=== PATIENT | female | born 1985 | race African-American/Black ===

== ENCOUNTER 2023-01-13 09:45 | Emergency (ER) | payer SELFPAY ==
--- OUTSIDE RECORDS SUMMARY | 2023-01-13 09:47 | XMS REPORT | Clinical Summary ---
:1985 Author Organization [facility] Address [address] [place] [address] Care Team Providers Name Role Phone Unavailable Primary Care Provider Unavailable Allergies Not on File Medications Not on file Active Problems Not on file Social History Tobacco Use Types Packs/Day Years Used Date Smoking Tobacco: Never Assessed Sex Assigned at Date Recorded Not on file Last Filed Vital Signs Not on file Plan of Treatment Not on file Results Not on fileafter 01/13/2022
--- OUTSIDE RECORDS SUMMARY | 2023-01-13 09:49 | XMS REPORT | Continuity of Care Document ---
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 [id number] 09:08:00 Test Item Value Reference Range Interpretation Comments Monocytes # (test code = Monocytes #) 0.5 <=0[address]8 [facility] HospitalDqcsqopOQYGBZHUPY5807-42-24 09:08:00 Test Item Value Reference Range Interpretation Comments Lymphocytes # (test code = Lymphocytes 1.9 1.0-5.5 #) [facility] HospitalNrlukbySTNPOBWNAG9049-51-48 09:08:00 Test Item Value Reference Range Interpretation Comments Neutrophils # (test code = Neutrophils 5.1 1.5-8.1 #) [facility] HospitalRockcsxPWXIWWUHMS9260-93-14 09:08:00 Test Item Value Reference Range Interpretation Comments Basophils (test code = Basophils) 0.[address] [facility] HospitalEcglpztYAVAPSSWLA5294-24-29 09:08:00 Test Item Value Reference Range Interpretation Comments Eosinophils (test code = Eosinophils) 1.[address] <=[address] [facility] HospitalSbbukxxKLLKWMFNDF2866-95-85 09:08:00 Test Item Value Reference Range Interpretation Comments Monocytes (test code = Monocytes) 6.7 2.0-12.0 [facility] HospitalPizbidkQWYKGYMGBU2908-71-46 09:08:00 Test Item Value Reference Range Interpretation Comments Lymphocytes (test code = Lymphocytes) 24.9 20.0-40.0 [facility] HospitalNodlcosWDTXJKKUDF9141-05-33 09:08:00 Test Item Value Reference Range Interpretation Comments Segs (test code = Segs) 66.5 45.0-75.0 [facility] HospitalBsuthquTAMZXZMDEW1495-22-80 09:08:00 Test Item Value Reference Range Interpretation Comments Eosinophils # (test code = Eosinophils 0.1 <=0.5 #) [facility] HospitalMoophleGLCOMHZJZL4853-71-72 09:08:00 Test Item Value Reference Range Interpretation Comments MPV (test code = MPV) 7.9 7.4-10.4 [facility]kbMOPWDIYIAR3485-43-46 09:08:00 Test Item Value Reference Range Interpretation Comments RDW (test code = RDW) 15.9 11.5-14.5 [facility] HospitalHhgzarrMMDTGIUZAZ6855-63-18 09:08:00 Test Item Value Reference Range Interpretation Comments Platelet (test code = Platelet) 160 133-450 [facility] HospitalIhfgmkxLOJUOKZLLN6899-23-72 09:08:00 Test Item Value Reference Range Interpretation Comments MCH (test code = MCH) 30.6 pg 27.0-31.0 [facility] HospitalHbjulzcXTIMQOYCJX0292-54-66 09:08:00 Test Item Value Reference Range Interpretation Comments MCV (test code = MCV) 88.9 80.0-98.0 [facility] HospitalKkrnjsbUZOSFCMBKY5458-80-92 09:08:00 Test Item Value Reference Range Interpretation Comments Hct (test code = Hct) 33.5 36.0-48.0 [facility] HospitalLnhkslvITPNSKEJCN2856-37-16 09:08:00 Test Item Value Reference Range Interpretation Comments MCHC (test code = MCHC) 34.4 32.0-36.0 [facility] HospitalRcqgeeaGLNBSFKOPB4907-50-04 09:08:00 Test Item Value Reference Range Interpretation Comments RBC (test code = RBC) 3.77 4.20-5.40 [facility] HospitalRpasjjuLAYTTOFJDT5653-08-30 09:08:00 Test Item Value Reference Range Interpretation Comments Hgb (test code = Hgb) 11.5 12.0-16.0 [facility] HospitalPavstpjOSNOYZJWDR2868-21-10 09:08:00 Test Item Value Reference Range Interpretation Comments WBC (test code = WBC) 7.7 3.7-10.4 [facility] CenterBxelntbNONHWBIFBE3123-69-29 09:08:00 Test Item Value Reference Range Interpretation Comments Hep Bs Ag (test code Negative *NA*(01/12/18 = Hep Bs Ag) 4:08 AM) [facility]
[2023-01-13 10:36] LABS: Absolute Lymphocytes (CBC) 2.2 K/uL (0.7-4.9); Hematocrit 38.4 % (36.0-45.0); MCV 88.6 fL (80-100); MPV 8.9 fL (7.6-11.3); Platelets 274 thou/uL (152-406); RBC Red Blood Cell Count 4.33 M/uL (3.86-4.86)
[2023-01-13 10:43] LABS: Protime INR 1.06
--- NOTE | 2023-01-13 10:44 | RAD REPORT ---
EXAM DESCRIPTION: CT - Head Brain Wo Cont - 01/13/2023 10:18 am CLINICAL HISTORY: HEADACHE COMPARISON: No comparisons TECHNIQUE: Noncontrast head CT images were obtained without IV contrast. Multiplanar reformats were generated and reviewed. All CT scans are performed using dose optimization technique as appropriate and may include automated exposure control or mA/KV adjustment according to patient size. FINDINGS: No intracranial hemorrhage, mass, or edema. Midline structures are unremarkable. Normal ventricular caliber for age. Ch-white matter differentiation is preserved, without evidence of acute infarct. No abnormal extra- axial fluid collections. Mastoid air cells and visualized portions of the paranasal sinuses are clear. No acute bony findings. IMPRESSION: No evidence of an acute intracranial process.
[2023-01-13 10:56] LABS: ALT/SGPT 22 U/L (13-56); AST/SGOT 9 U/L (15-37); Albumin 3.9 g/dL (3.4-5.0); Alkaline Phosphatase 46 U/L (45-117); BUN Blood Urea Nitrogen 11 mg/dL (7-18); Bicarbonate 28 mEq/L (21-32); Bilirubin Direct < 0.1 mg/dL (0-0.2); Bilirubin Indirect, Calculated ND mg/dL (0.2-0.8); Bilirubin Total 0.3 mg/dL (0.2-1.0); Glomerular Filtration Rate 102 ml/min (=/>90); Glucose Level 100 mg/dL (74-106); Magnesium 2.2 mg/dL (1.6-2.4); Potassium 3.7 mEq/L (3.5-5.1); Protein, Total 8.1 g/dL (6.4-8.2); Sodium Level 140 mEq/L (136-145); Troponin High Sensitivity 56.8 pg/mL (<58.9)
[2023-01-13] MEDS ORDERED: KETOROLAC 30 MG/ML INJ ONE (11:09)
--- NOTE | 2023-01-13 11:54 | RAD REPORT ---
EXAM DESCRIPTION: Rico Single View01/13/2023 11:07 am CLINICAL HISTORY: CHEST PAIN COMPARISON: No comparisons TECHNIQUE: Portable AP view of the chest. FINDINGS: Superimposition of soft tissues somewhat limits evaluation. The lungs are clear. No pneum othorax or effusion. The cardiomediastinal contours are unremarkable. IMPRESSION: No acute cardiopulmonary process.
[2023-01-13] MEDS ORDERED: DIPHENHYDRAMINE 50 MG/ML VIAL ONE (12:15)
[2023-01-13] MEDS ORDERED: METOCLOPRAMIDE 10 MG/2mL INJ ONE (12:16)
[2023-01-13] MEDS ORDERED: NA CHLORIDE 0.9% 1,000 ML ONE (12:16)
--- NOTE | 2023-01-13 14:47 | EDPHYS ---
Physician Documentation [facility] Name: Janene Ruvalcaba Age: 37 yrs Sex: Female : 1985 Arrival Date: 01/13/2023 Time: 09:45 Bed 6 Private MD: ED Physician Nic Avery HPI: 01/13 10:41 This 37 yrs old Black Female presents to ER via Ambulatory with complaints of Headache, ms3 Dizziness, High Blood Pressure. 10:41 37-year-old female with no past medical history presents for headache, chest pain that ms3 been ongoing intermittently for the last few weeks. Patient states today she became dizzy with a right-sided headache. Patient took her blood pressure while on the inpatient floor and her blood pressure was 199/115. Patient states she has had chest pain for the last week. Patient states her right-sided headache is a 9/10. Patient denies any alleviating or inciting factors. Historical: - Allergies: 09:52 No Known Allergies; ll1 - PMHx: 09:52 None; ll1 - PSHx: 09:52 "tummy tuck"; ll1 - Immunization history:: Adult Immunizations up to date. - Social history:: Smoking status: Patient denies any tobacco usage or history of. ROS: 10:41 Constitutional: Negative for fever, and chills. ENT: Negative for injury, pain, and ms3 discharge, Neck: Negative for injury, pain, and swelling, Cardiovascular: Negative for chest pain, and palpitations. Respiratory: Negative for shortness of breath, cough, wheezing, and pleuritic chest pain, Abdomen/GI: Negative for abdominal pain, nausea, vomiting, diarrhea, and constipation, MS/Extremity: Negative for injury and deformity, Skin: Negative for injury, rash, and discoloration, 10:41 Neuro: Positive for headache, 10:41 All other systems are negative, Exam: 10:41 Constitutional: This is a well developed, well nourished patient who is awake, alert, ms3 and in no acute distress. Head/Face: Normocephalic, atraumatic. Neck: Trachea midline, no cervical lymphadenopathy. Supple, full range of motion without nuchal rigidity, or vertebral point tenderness. No Meningismus. Chest/axilla: Normal chest wall appearance and motion. Nontender with no deformity. Cardiovascular: Regular rate and rhythm with a normal S1 and S2. No gallops, murmurs, or rubs. Normal PMI, no JVD. No pulse deficits. Respiratory: Lungs have equal breath sounds bilaterally, clear to auscultation and percussion. No rales, rhonchi or wheezes noted. No increased work of breathing, no retractions or nasal flaring. Abdomen/GI: Soft, non-tender, with normal bowel sounds. No distension or tympany. No guarding or rebound. No evidence of tenderness throughout. Skin: Warm, dry with normal turgor. Normal color with no rashes, no lesions, and no evidence of cellulitis. MS/ Extremity: Pulses equal, no cyanosis. Neurovascular intact. Full, normal range of motion. Neuro: Awake and alert, GCS 15, oriented to person, place, time, and situation. Cranial nerves II-XII grossly intact. Motor strength 5/5 in all extremities. Sensory grossly intact. Cerebellar exam normal. Normal gait. 10:43 ECG was reviewed by the Attending Physician. ms3 Vital Signs: 09:53 BP 190 / 121; Pulse 89; Resp 17; Temp 98; Pulse Ox 100% ; Weight 104.33 kg; Height 5 ll1 ft. 5 in. ; Pain 9/10; 10:33 BP 160 / 100; Pulse 85; Resp 16; Pulse Ox 99% on R/A; iw 10:39 BP 126 / 97; Pulse 74; Resp 18; Pulse Ox 100% on R/A; ld1 11:58 BP 135 / 89; Pulse 71; Resp 18; Pulse Ox 100% on R/A; ld1 14:25 BP 133 / 93; Pulse 68; Resp 18; Pulse Ox 100% on R/A; ld1 09:53 Body Mass Index 38.27 (104.33 kg, 165.1 cm) ll1 09:53 Pain Scale: Adult ll1 MDM: 10:05 Patient medically screened. ms3 10:41 Differential diagnosis: cluster headache, subarachnoid bleed, tension headache, [place] ms3 versus musculoskeletal pain versus hypertension. 11:21 Independent interpretation of the following test(s) in the Emergency Department X-Ray: ms3 My interpretation is CXR image reviewed by me does not show pulmonary edema, PNA, or PTX. 14:47 Data reviewed: vital signs, nurses notes, lab test result(s), EKG, radiologic studies, ms3 and as a result, I will discharge patient. Consideration of Admission/Observation Escalation of care including admission/observation considered. HEART Score 0. I considered the following discharge prescriptions or medication management in the emergency department Medications were administered in the Emergency Department. See MAR. Scoring Tools HEART Score: History: Slightly Suspicious (0) ECG: Normal (0) Age: < or = 45 years (0) Risk Factors: No Risk factors known (0) Troponin: < or = 1 x Normal limit (0) Total Score = 0. Counseling: I had a detailed discussion with the patient and/or guardian regarding the historical points, exam findings, and any diagnostic results supporting the discharge/admit diagnosis, lab results, radiology results, the need for outpatient follow up, to return to the emergency department if symptoms worsen or persist or if there are any questions or concerns that arise at home. Special discussion: I discussed with the patient/guardian in detail that at this point there is no indication for admission to the hospital. It is understood, however, that if the symptoms persist or worsen the patient needs to return immediately for re-evaluation. ED course: Discussed labs, chest x-ray, CT head results with patient and her . Patient to follow-up with primary care physician as discussed. All questions were answered. Return precautions discussed include worsening symptoms, or any other concerns. On reevaluation patient's blood pressure improved, patient symptoms improved, patient alert and orient x4, no apparent distress, nontoxic-appearing, ambulatory in emergency primary, speaking full sentences. 14:47 Response to treatment: the patient's symptoms have markedly improved after treatment, ms3 and as a result, I will discharge patient. 01/13 10:06 Order name: Basic Metabolic Panel; Complete Time: 11:20 ms3 01/13 10:06 Order name: CBC with Diff; Complete Time: 11:20 ms3 01/13 10:06 Order name: LFT's; Complete Time: 11:20 ms3 01/13 10:06 Order name: Magnesium; Complete Time: 11:20 ms3 01/13 10:06 Order name: PT-INR; Complete Time: 11:20 ms3 01/13 10:06 Order name: Troponin HS; Complete Time: 11:20 ms3 01/13 13:02 Order name: Troponin High Sensitivity; Complete Time: 14:27 ms3 01/13 10:06 Order name: XRAY Chest (1 view); Complete Time: 12:02 ms3 01/13 10:06 Order name: CT Head Brain wo Cont; Complete Time: 11:20 ms3 01/13 10:06 Order name: EKG; Complete Time: 10:06 ms3 01/13 10:06 Order name: Cardiac monitoring; Complete Time: 10:32 ms3 01/13 10:06 Order name: EKG - Nurse/Tech; Complete Time: 10:14 ms3 01/13 10:06 Order name: IV Saline Lock; Complete Time: 10:32 ms3 01/13 10:06 Order name: Labs collected and sent; Complete Time: 10:32 ms3 01/13 10:06 Order name: O2 Per Protocol; Complete Time: 10:14 ms3 01/13 10:06 Order name: O2 Sat Monitoring; Complete Time: 10:14 ms3 EC:43 Rate is 76 beats/min. Rhythm is regular. Left axis deviation noted. [place] interval is ms3 normal. QRS interval is normal. Clinical impression: Normal ECG. Interpreted by me. Reviewed by me. Administered Medications: 11:00 Drug: Ketorolac IVP 10 mg 10 mg IVP once Route: IVP; Site: left antecubital; iw 12:10 Drug: metoCLOPramide IVP 10 mg IVP once; over 1 to 2 minutes Route: IVP; Site: left ld1 antecubital; 12:10 Drug: diphenhydrAMINE IVP 25 mg IVP once Route: IVP; Site: left antecubital; ld1 12:10 Drug: NS 0.9% IV 1000 ml IV at 1 bolus Per protocol; 1000 mL bolus Route: IV; Rate: 1 ld1 bolus; Site: left antecubital; Disposition Summary: 01/13/23 14:47 Discharge Ordered Notes: Location: Home ms3 Condition: Stable ms3 Diagnosis - Headache ms3 - Chest pain, unspecified ms3 - Elevated blood-pressure reading, without diagnosis of hypertension ms3 Followup: ms3 - With: Prateek Sanchez, DO - When: 1 - 2 days - Reason: Recheck today's complaints Discharge Instructions: - Discharge Summary Sheet bd Forms: - School release form bd - Medication Reconciliation Form ms3 - Thank You Letter ms3 - Antibiotic Education ms3 - Prescription Opioid Use ms3 - Patient Portal Instructions ms3 - Leadership Thank You Letter ms3 Signatures: Dispatcher [employer] Elinor Nesbitt, Yung Raya RN, RN RN ll1 Nic Avery, DO ms3 Zarina Avery RN RN ld1 Corrections: (The following items were deleted from the chart) 09:53 09:52 PSHx: None; [place] [id number]
--- NOTE | 2023-01-13 14:47 | ER ---
Nurse's Notes [facility] Name: Janene Ruvalcaba Age: 37 yrs Sex: Female : 1985 Arrival Date: 01/13/2023 Time: 09:45 Bed 6 Private MD: Diagnosis: Headache;Chest pain, unspecified;Elevated blood-pressure reading, without diagnosis of hypertension Presentation: 01/13 09:53 Chief complaint: Patient states: Feeling bad since yesterday, tried to push herself to ll1 get through clinical's today. LE, dizzy, elevated BP, pain to upper back and chest, hands feel numb. Coronavirus screen: Vaccine status: Patient reports receiving the 2nd dose of the covid vaccine. Client denies travel out of the [place] in the last 14 days. At this time, the client does not indicate any symptoms associated with coronavirus-19. Ebola Screen: Patient denies travel to an Ebola-affected area in the 21 days before illness onset. Initial Sepsis Screen: Does the patient meet any 2 criteria? No. Patient's initial sepsis screen is negative. Does the patient have a suspected source of infection? No. Patient's initial sepsis screen is negative. Risk Assessment: Do you want to hurt yourself or someone else? Patient reports no desire to harm self or others. Onset of symptoms was January 12, 2023. 09:53 Method Of Arrival: Ambulatory 1 09:53 Acuity: ASHLEY 2 ll1 Triage Assessment: 15:01 Pain: Also complains of. tm6 Historical: - Allergies: 09:52 No Known Allergies; ll1 - PMHx: 09:52 None; ll1 - PSHx: 09:52 "tummy tuck"; ll1 - Immunization history:: Adult Immunizations up to date. - Social history:: Smoking status: Patient denies any tobacco usage or history of. Screenin:33 [facility] ED Fall Risk Assessment (Adult) Score/Fall Risk Level 0 - 2 = Low Risk. Abuse iw screen: Denies threats or abuse. Denies injuries from another. Nutritional screening: No deficits noted. Tuberculosis screening: No symptoms or risk factors identified. Assessment: 10:32 General: Appears in no apparent distress. Behavior is calm, cooperative. Pain: iw Complains of pain in head and back of neck Pain currently is 9 out of 10 on a pain scale. Neuro: Level of Consciousness is awake, alert, obeys commands, Oriented to person, place, time, situation, Moves all extremities. Full function. Cardiovascular: Reports chest pain, palpitations, shortness of breath, Patient's skin is warm and dry. Respiratory: Airway is patent Respiratory effort is even, unlabored, Respiratory pattern is regular, symmetrical. Derm: Skin is intact, is healthy with good turgor. Musculoskeletal: Range of motion: intact in all extremities. 12:11 Reassessment: Pt c/o pain to right side of neck \\T\\ head. Notified ERP. See MAR for ld1 orders. Vital Signs: 09:53 BP 190 / 121; Pulse 89; Resp 17; Temp 98; Pulse Ox 100% ; Weight 104.33 kg; Height 5 ll1 ft. 5 in. ; Pain 9/10; 10:33 BP 160 / 100; Pulse 85; Resp 16; Pulse Ox 99% on R/A; iw 10:39 BP 126 / 97; Pulse 74; Resp 18; Pulse Ox 100% on R/A; ld1 11:58 BP 135 / 89; Pulse 71; Resp 18; Pulse Ox 100% on R/A; ld1 14:25 BP 133 / 93; Pulse 68; Resp 18; Pulse Ox 100% on R/A; ld1 09:53 Body Mass Index 38.27 (104.33 kg, 165.1 cm) ll1 09:53 Pain Scale: Adult ll1 ED Course: 09:46 Patient arrived in ED. rg4 09:47 Arm band placed on Patient placed in an exam room, on a stretcher. ll1 09:48 Nic Avery DO is Attending Physician. ms3 09:54 Triage completed. ll1 10:20 CT Head Brain wo Cont In Process Unspecified. EDMS 10:32 Elinor Parker, RN is Primary Nurse. iw 10:32 Inserted saline lock: 22 gauge in left antecubital area, using aseptic technique. Blood ld1 collected. 10:52 Patient has correct armband on for positive identification. Bed in low position. Call iw light in reach. Side rails up X2. 10:52 No provider procedures requiring assistance completed. iw 11:08 XRAY Chest (1 view) In Process Unspecified. EDMS 11:57 Primary Nurse role handed off by Elinor Parker, RN ld1 11:57 Zarina Avery, RN is Primary Nurse. ld1 14:46 Prateek Sanchez DO is Referral Physician. ms3 15:02 IV discontinued, intact, bleeding controlled. tm6 Administered Medications: 11:00 Drug: Ketorolac IVP 10 mg 10 mg IVP once Route: IVP; Site: left antecubital; iw 12:10 Drug: metoCLOPramide IVP 10 mg IVP once; over 1 to 2 minutes Route: IVP; Site: left ld1 antecubital; 12:10 Drug: diphenhydrAMINE IVP 25 mg IVP once Route: IVP; Site: left antecubital; ld1 12:10 Drug: NS 0.9% IV 1000 ml IV at 1 bolus Per protocol; 1000 mL bolus Route: IV; Rate: 1 ld1 bolus; Site: left antecubital; Medication: 10:33 VIS not applicable for this client. iw Outcome: 14:47 Discharge ordered by MD. ms3 15:01 Discharged to home ambulatory, with family, tm6 15:01 Condition: stable 15:01 Instructed on discharge instructions, follow up and referral plans. 15:02 Patient left the ED. tm6 Signatures: Dispatcher [employer] EDMS Elinor Parker, Maricel Agrawal RN rg4 Yung Ramos RN RN ll1 Nic Avery DO DO ms3 Zarina Avery, RN RN ld1 Holly Garrett RN RN tm6 Corrections: (The following items were deleted from the chart) 09:53 09:52 PSHx: None; ll1 ll1
[2023-01-13 15:20] VITALS: TEMP 98
[2023-01-13 15:38] VITALS: O2SAT 100
[2023-01-13 15:41] VITALS: BP 133/93
--- NOTE | 2023-01-14 12:30 | EKG ---
Test Date: 2023-01-13 Test Time: 10:08:03 Engine Repairer Service: TENZIN MEASUREMENT RESULTS: Intervals: Rate: 76 MN: 146 QRSD: 82 QT: 406 QTc: 456 [place]: P: 67 MN: 146 QRS: 2 T: 26 INTERPRETIVE STATEMENTS: Normal sinus rhythm Possible Left atrial enlargement Borderline ECG No previous ECG available for comparison Electronically Signed On 01-14-23 12:28:06 CDT by Juan Alberto Coreas
== END 2023-01-13 15:02 | disposition home or self-care (01) ==
LOC: ER 09:45
DX: R51.9 Headache, unspecified (principal); R07.9 Chest pain, unspecified; R03.0 Elevated blood-pressure reading, without diagnosis of hypertension
CPT/HCPCS: 36415; 70450; 71045; 80048; 80076; 83735; 84484; 85025; 85610; 93005; J1200; J2765; J7030